=== PATIENT | male | born 1985 | race Two or more races ===

== ENCOUNTER 2023-05-03 17:47 | Observation (INO) | payer BC ==
[2023-05-03] MEDS ORDERED: SODIUM CHLORIDE 0.9% 1,000 ML IV STA (18:27)
--- NOTE | 2023-05-03 18:28 | ED ---
General Adult HPI - General Chief complaint: Abdominal Pain Stated complaint: abd pain Time Seen by Provider: 05/03/23 17:59 Source: patient, RN notes reviewed Mode of arrival: ambulatory Limitations: no limitations - History of Present Illness Initial comments: 37-year-old male presents to the emergency department for evaluation of epigastric abdominal pain since yesterday. He states that the pain has been constant and radiates to his back. He admits to nausea with vomiting. Denies recent fevers. He denies significant alcohol consumption. He does admit to having 1 beer 2 days ago. Denies history of pancreatitis. Past medical history significant for ADHD. Denies any prior abdominal surgeries. - Related Data Home Medications Medication Instructions Recorded Confirmed Famotidine [Pepcid] 20 mg PO DAILY PRN 05/03/23 05/03/23 Ibuprofen [Motrin Ib] 400 - 600 mg PO Q8H PRN 05/03/23 05/03/23 Methylphenidate HCl [Ritalin] 10 mg PO DAILY PRN 05/03/23 05/03/23 Naproxen Sodium [Aleve] 220 mg PO BID PRN 05/03/23 05/03/23 Simethicone [Gas-X] 125 mg PO DAILY PRN 05/03/23 05/03/23 Allergies Allergy/AdvReac Type Severity Reaction Status Date / Time Penicillins Allergy Unknown Verified 05/03/23 21:10 Review of Systems ROS Statement: Those systems with pertinent positive or pertinent negative responses have been documented in the HPI. ROS Other: All systems not noted in ROS Statement are negative. Past Medical History Past Medical History: No Reported History History of Any Multi-Drug Resistant Organisms: None Reported Past Surgical History: No Surgical Hx Reported Past Psychological History: No Psychological Hx Reported Smoking Status: Never smoker Past Alcohol Use History: Occasional Past Drug Use History: None Reported General Exam Limitations: no limitations General appearance: alert, in no apparent distress Head exam: Present: atraumatic, normocephalic, normal inspection Eye exam: Present: normal appearance, PERRL, EOMI. Absent: scleral icterus, conjunctival injection, periorbital swelling ENT exam: Present: mucous membranes dry Neck exam: Present: normal inspection. Absent: tenderness, meningismus, lymphadenopathy Respiratory exam: Present: normal lung sounds bilaterally. Absent: respiratory distress, wheezes, rales, rhonchi, stridor Cardiovascular Exam: Present: regular rate, normal rhythm, normal heart sounds. Absent: systolic murmur, diastolic murmur, rubs, gallop, clicks GI/Abdominal exam: Present: soft, tenderness, normal bowel sounds. Absent: distended Extremities exam: Present: normal inspection, full ROM, normal capillary refill. Absent: tenderness, pedal edema, joint swelling, calf tenderness Back exam: Present: normal inspection Neurological exam: Present: alert, oriented X3 Psychiatric exam: Present: normal affect, normal mood Course Vital Signs 05/03/23 05/03/23 05/03/23 17:51 18:10 18:30 Temperature 98.7 F Pulse Rate 110 H Pulse Rate [ Pulse Oximetery ] Respiratory 20 18 18 Rate Blood Pressure 126/86 132/91 132/91 Blood Pressure [Right Arm] O2 Sat by Pulse 99 98 99 Oximetry 05/03/23 05/04/23 19:00 01:14 Temperature 98.8 F Pulse Rate 78 Pulse Rate [ 106 H Pulse Oximetery ] Respiratory 17 20 Rate Blood Pressure 137/95 Blood Pressure 128/92 [Right Arm] O2 Sat by Pulse 95 98 Oximetry Medical Decision Making - Medical Decision Making Was pt. sent in by a medical professional or institution (, PA, [employer], urgent c are, hospital, or halfway...) When possible be specific @ -No Did you speak to anyone other than the patient for history (EMS, parent, family, police, friend...)? What history was obtained from this source @ -No Did you review nursing and triage notes (agree or disagree)? Why? @ -I reviewed and agree with nursing and triage notes Were old charts reviewed (outside hosp., previous admission, EMS record, old EKG, old radiological studies, urgent care reports/EKG's, halfway records)? Report findings @ -Charts from visit at urgent care in [place] reviewed including EKG which shows normal sinus rhythm rate 82, DE 142, QRS 88, QTQTc [id number]; laboratory studies including elevated lipase. Patient received 1 L normal saline, 0.5 mg of Dilaudid, Zofran, Benadryl at the urgent care facility. Patient was transferred to our facility as the patient currently has [place] citizenship and i nsurance in the [place]. Differential Diagnosis (chest pain, altered mental status, abdominal pain women, abdominal pain men, vaginal bleeding, weakness, fever, dyspnea, syncope, headache, dizziness, GI bleed, back pain, seizure, CVA, palpatations, mental health, musculoskeletal)? @ -Differential Abdominal Pain Men: Appendicitis, cholecystitis, diverticulosis, ischemic bowel, pancreatitis, hepatitis, UTI, gastroenteritis, AAA, incarcerated hernia, bowel obstruction, constipation, inflammatory bowel, hepatitis, peptic ulcer disease, splenic infarction, perforated viscus, testicular torsion, this is not meant to be an all-inclusive list EKG interpreted by me (3pts min.). @ -None X-rays interpreted by me (1pt min.). @ -None done CT interpreted by me (1pt min.). @ -CT abdomen pelvis shows U/S interpreted by me (1pt. min.). @ -None done What testing was considered but not performed or refused? (CT, X-rays, U/S, labs)? Why? @ -None What meds were considered but not given or refused? Why? @ -None Did you discuss the management of the patient with other professionals (professionals i.e. , PA, [employer], lab, RT, psych nurse, social media project manager, industrial designer, teacher, district fire management officer, heel caser)? Give summary @ -Management discussed with [facility], Dr. Zamora who was accepting of the admission for symptom control, surgery consult. Was smoking cessation discussed for >3mins.? @ -No Was critical care preformed (if so, how long)? @ -No Were there social determinants of health that impacted care today? How? (Homelessness, low income, unemployed, alcoholism, drug addiction, transportation, low edu. Level, literacy, decrease access to med. care, [facility], rehab)? @ -No Was there de-escalation of care discussed even if they declined (Discuss DNR or withdrawal of care, Hospice)? DNR status @ -No What co-morbidities impacted this encounter? (DM, HTN, Smoking, COPD, CAD, Can cer, CVA, ARF, Chemo, Hep., AIDS, mental health diagnosis, sleep apnea, morbid obesity)? @ -None Was patient admitted / discharged? Hospital course, mention meds given and route, prescriptions, significant lab abnormalities, going to OR and other pertinent info. @ -Admitted. Patient presented to the emergency department for evaluation of epigastric pain. Patient was sent in by urgent care in [place]. Symptoms have been going on since yesterday. He denies significant alcohol use. Records from [facility] reviewed and listed above. Laboratory studies repeated. Patient has leukocytosis of 18.9. Coagulation studies within normal limits. CMP shows sodium 139 potassium 4.1, lactic acid 1.1 amylase 1386, lipase 6435; UA shows 2+ ketones, trace protein, increased specific gravity. CT abdomen pelvis obtained. Impression mild fluid in the right paracolic gutter and within the pelvis; moderate fatty infiltration of the liver; cystlike area in the left hemipelvis. Will be admitted for acute pancreatitis, fluid rehydration, symptom control and surgery consult. Case was discussed with who is accepting of the admission. Understanding agreeable with plan. Patient stable at time of admission. Case discussed with my attending, Dr. Smith Undiagnosed new problem with uncertain prognosis? @ -No Drug Therapy requiring intensive monitoring for toxicity (Heparin, Nitro, Insulin, Cardizem)? @ -No Were any procedures done? @ -No Diagnosis/symptom? @ -Pancreatitis Acute, or Chronic, or Acute on Chronic? @ -Acute Uncomplicated (without systemic symptoms) or Complicated (systemic symptoms)? @ -Uncomplicated Side effects of treatment? @ -No Exacerbation, Progression, or Severe Exacerbation? @ -No Poses a threat to life or bodily function? How? (Chest pain, [place], DE, pneumonia, PE, COPD, DKA, ARF, appy, cholecystitis, CVA, Diverticulitis, Homicidal, Suicidal, threat to staff... and all critical care pts) @ -No - Lab Data Result diagrams: 05/04/23 05:33 05/04/23 05:33 Lab Results 05/03/23 05/03/23 05/03/23 Range/Units 18:38 18:38 18:38 WBC 18.9 H (3.8-10.6) k/uL RBC 4.92 (4.30-5.90) m/uL Hgb 15.1 (13.0-17.5) gm/dL Hct 44.6 (39.0-53.0) % MCV 90.8 (80.0-100.0) fL MCH 30.7 (25.0-35.0) pg MCHC 33.9 (31.0-37.0) g/dL RDW 13.3 (11.5-15.5) % Plt Count 179 (150-450) k/uL MPV 8.4 Neutrophils % 87 % Lymphocytes % 8 % Monocytes % 3 % Eosinophils % 1 % Basophils % 0 % Neutrophils # 16.5 H (1.3-7.7) k/uL Lymphocytes # 1.5 (1.0-4.8) k/uL Monocytes # 0.6 (0-1.0) k/uL Eosinophils # 0.2 (0-0.7) k/uL Basophils # 0.0 (0-0.2) k/uL Manual Slide Review Performed RBC Morphology Normal PT 11.3 (10.0-12.5) sec INR 1.0 (<1.2) APTT 25.1 (22.0-30.0) sec Sodium 139 (137-145) mmol/L Potassium 4.1 (3.5-5.1) mmol/L Chloride 108 H (98-107) mmol/L Carbon Dioxide 23 (22-30) mmol/L Anion Gap 8 mmol/L BUN 13 (9-20) mg/dL Creatinine 0.84 (0.66-1.25) mg/dL Est GFR (CKD-EPI)AfAm >90 (>60 ml/min/1.73 sqM) Est GFR (CKD-EPI)NonAf >90 (>60 ml/min/1.73 sqM) Glucose 118 H (74-99) mg/dL Plasma Lactic Acid Salazar (0.7-2.0) mmol/L Calcium 8.2 L (8.4-10.2) mg/dL Total Bilirubin 0.7 (0.2-1.3) mg/dL AST 24 (17-59) U/L ALT 47 (4-49) U/L Alkaline Phosphatase 93 (38-126) U/L Total Protein 6.4 (6.3-8.2) g/dL Albumin 3.7 (3.5-5.0) g/dL Amylase 1386 H* (30-110) U/L Lipase 6435 H (23-300) U/L 05/03/23 Range/Units 18:38 WBC (3.8-10.6) k/uL RBC (4.30-5.90) m/uL Hgb (13.0-17.5) gm/dL Hct (39.0-53.0) % MCV (80.0-100.0) fL MCH (25.0-35.0) pg MCHC (31.0-37.0) g/dL RDW (11.5-15.5) % Plt Count (150-450) k/uL MPV Neutrophils % % Lymphocytes % % Monocytes % % Eosinophils % % Basophils % % Neutrophils # (1.3-7.7) k/uL Lymphocytes # (1.0-4.8) k/uL Monocytes # (0-1.0) k/uL Eosinophils # (0-0.7) k/uL Basophils # (0-0.2) k/uL Manual Slide Review RBC Morphology PT (10.0-12.5) sec INR (<1.2) APTT (22.0-30.0) sec Sodium (137-145) mmol/L Potassium (3.5-5.1) mmol/L Chloride (98-107) mmol/L Carbon Dioxide (22-30) mmol/L Anion Gap mmol/L BUN (9-20) mg/dL Creatinine (0.66-1.25) mg/dL Est GFR (CKD-EPI)AfAm (>60 ml/min/1.73 sqM) Est GFR (CKD-EPI)NonAf (>60 ml/min/1.73 sqM) Glucose (74-99) mg/dL Plasma Lactic Acid Salazar 1.1 (0.7-2.0) mmol/L Calcium (8.4-10.2) mg/dL Total Bilirubin (0.2-1.3) mg/dL AST (17-59) U/L ALT (4-49) U/L Alkaline Phosphatase (38-126) U/L Total Protein (6.3-8.2) g/dL Albumin (3.5-5.0) g/dL Amylase (30-110) U/L Lipase (23-300) U/L Disposition Clinical Impression: Acute pancreatitis Disposition: ADMITTED IP TO THIS [facility] Condition: Stable Is patient prescribed a controlled substance at d/c from ED?: No
[2023-05-03] MEDS ORDERED: HYDROmorphone 0.5 MG/0.5 ML SYRINGE IVP STA ×2 (18:43→21:00)
[2023-05-03 18:57] LABS: Partial Thromboplastin Time 25.1 sec (22.0-30.0); Prothrombin Time 11.3 sec (10.0-12.5)
[2023-05-03 19:01] LABS: ALT 47 U/L (4-49); AST 24 U/L (17-59); African American GFR (CKD) >90 (>60 ml/min/1.73 sqM); Albumin 3.7 g/dL (3.5-5.0); Alkaline Phosphatase 93 U/L (38-126); Anion Gap 8 mmol/L; Blood Urea Nitrogen 13 mg/dL (9-20); Calcium 8.2 mg/dL (8.4-10.2); Carbon Dioxide 23 mmol/L (22-30); Chloride 108 mmol/L (98-107); Glucose 118 mg/dL (74-99); Non-African American GFR(CKD) >90 (>60 ml/min/1.73 sqM); Potassium 4.1 mmol/L (3.5-5.1); Sodium 139 mmol/L (137-145); Total Bilirubin 0.7 mg/dL (0.2-1.3); Total Protein 6.4 g/dL (6.3-8.2)
[2023-05-03 19:03] LABS: Basophils % (A) 0 %; Eosinophils # (A) 0.2 k/uL (0-0.7); Eosinophils % (A) 1 %; HCT 44.6 % (39.0-53.0); HGB 15.1 gm/dL (13.0-17.5); Lymphocytes # (A) 1.5 k/uL (1.0-4.8); Lymphocytes % (A) 8 %; MCH 30.7 pg (25.0-35.0); MCHC 33.9 g/dL (31.0-37.0); MCV 90.8 fL (80.0-100.0); Mean Platelet Volume 8.4; Monocytes # (A) 0.6 k/uL (0-1.0); Monocytes % (A) 3 %; Neutrophils # (A) 16.5 k/uL (1.3-7.7); Neutrophils % (A) 87 %; Platelet Count 179 k/uL (150-450); RBC 4.92 m/uL (4.30-5.90); RDW 13.3 % (11.5-15.5); WBC 18.9 k/uL (3.8-10.6)
[2023-05-03 19:14] LABS: RBC Morphology Normal
[2023-05-03 19:16] LABS: Amylase 1386 U/L (30-110)
[2023-05-03 19:30] LABS: Lipase 6435 U/L (23-300)
[2023-05-03] MEDS ORDERED: METOCLOPRAMIDE 5 MG/ML 2 ML VIAL IVP PRN (21:37)
--- NOTE | 2023-05-03 21:41 | CT ---
EXAMINATION TYPE: CT abdomen pelvis w con DATE OF EXAM: 05/03/2023 COMPARISON: INDICATION: midabdominal pain DLP: 867.3 mGycm, Automated exposure control for dose reduction was used. CONTRAST: 100ml mL of Isovue 300. Study performed without Oral Contrast TECHNIQUE: Axial images were obtained from above the diaphragm to the pubic rami in the axial plane a t 5 mm thick sections. Reconstructed images are reviewed on the computer in the coronal plane. FINDINGS: Limited CT sections are obtained the lung bases. The lung bases are clear. CT ABDOMEN: Some minimal fluid is within the right paracolic gutter and in the pelvis. Liver: There is moderate fatty impression liver. Spleen: Normal Pancreas: Normal Adrenal glands: The adrenal glands are normal. Gallbladder: Normal Kidneys: No masses are evident. No hydronephrosis is present. No cysts are present. Delayed images were obtained through the kidneys, which remain unremarkable. Aorta: Normal Inferior vena cava: Normal. CT PELVIS: Loops of bowel within the abdomen and pelvis are normal. This study is without neural contrast li miting bowel evaluation. Appendix: Normal as visualized. Urinary bladder: Urinary bladder appears normal. There is a cystlike area to the left of the urinary bladder could be a bladder diverticulum. This measures 2.4 cm in diameter. Genitourinary structures: Prostate contains calcification. Osseous structures: No suspicious lytic or sclerotic lesions. IMPRESSION: 1. Mild fluid within right paracolic gutter and within the pelvis. Free fluid within the abdomen is abnormal in a male. 2. Moderate fatty infiltration of liver. 3. Cystlike area within the left hemipelvis. Differential could include a urinary bladder diverticulu m and mesenteric cyst.
[2023-05-03] MEDS ORDERED: HYDROmorphone 1 MG/ML 1 ML SYRINGE IVP PRN (22:09)
[2023-05-03] MEDS ORDERED: IBUPROFEN 400 MG TAB PO PRN (22:09)
[2023-05-03] MEDS ORDERED: NALOXONE 0.4 MG/ML 1 ML VIAL IV PRN (22:09)
[2023-05-04] MEDS: SODIUM CHLORIDE 0.9% 1,000 ML IV SCH ×2 (00:59→10:00)
[2023-05-04 01:01] LABS: Appearance,Urine Clear (Clear); Bilirubin,Urine Negative (Negative); Blood,Urine Trace (Negative); Color,Urine Light Yellow; Glucose,Urine (UA) Negative (Negative); Ketones,Urine 2+ (Negative); Leukocyte Esterase,Urine Negative (Negative); Mucus,Urine Occasional /hpf; Nitrite,Urine Negative (Negative); Protein,Urine Trace (Negative); RBC,Urine 5 /hpf (0-5); Specific Gravity,Urine >1.050 (1.001-1.035); Squamous Epithelial Cell,Urine 1 /hpf (0-4); Urobilinogen,Urine <2.0 mg/dL (<2.0); WBC,Urine 2 /hpf (0-5)
[2023-05-04] MEDS: KETOROLAC 15 MG/ML 1 ML VIAL IVP PRN ×2 (01:04→14:58)
[2023-05-04] MEDS ORDERED: ONDANSETRON 4 MG/2 ML VIAL IVP PRN (04:28)
--- NOTE | 2023-05-04 04:30 | P.HPIM ---
History of Present Illness H&P Date: 05/04/23 Patient is a 37-year-old male with a PMH of ADD who presents to the emergency room with complaints of abdominal pain with nausea and vomiting. Patient reports his symptoms started on Thursday morning shortly after waking up with epigastric abdominal discomfort, 9 out of 10 at maximal intensity, nonradiating, with associated nausea with numerous episodes of vomiting. Denies any blood in his vomitus or coffee-ground. Reports the pain is improved to a 2 out of 10 at the time of interview. He denies any history of cholecystitis or cholelithiasis. Denies recent trauma or new medications. Denies any alcohol use. Denies any prior history of such symptoms. Reports he has been unable to keep any solids or liquids down for the past 2 days. Denies fever, chills, diarrhea, chest discomfort, shortness of breath. CT abdomen and pelvis revealed mild fluid within the right paracolic gutter as well as free fluid within the abdomen with moderate fatty infiltration of the liver. Laboratory evaluation revealed leukocytosis of 18.9, lipase 6435, amylase 1386, UA positive for ketones, and lactic acid 1.1. ED documentation reviewed and case discussed with ED provider. Review of systems: Pertinent positives and negatives as discussed in HPI, a complete review of systems was performed and all other systems are negative. Physical examination: Vital signs reviewed General: non toxic, no distress, appears at stated age, normal weight Derm: no unusual rashes/lesions, warm Head: atraumatic, normocephalic, symmetric Eyes: EOMI, no lid lag, anicteric sclera, pupils equal round reactive to light ENT: Nose and ears atraumatic Neck: No cervical lymphadenopathy, trachea midline, supple Mouth: no lip lesion, mucus membranes moist Cardiovascular: S1S2 reg, no murmur, positive dorsalis pedis pulse bilateral, no edema Lungs: CTA bilateral, no rhonchi, no rales, no accessory muscle use Abdominal: soft, mild epigastric tenderness, no guarding Ext: muscle strength 5 out of 5 in all 4 extremities grossly, no gross muscle atrophy, no contractures, Neuro: CN II-XI grossly intact, no gross focal neuro deficits Psych: Alert, oriented, appropriate affect Assessment: Acute pancreatitis, unclear etiology Leukocytosis, likely due to acute stressor without signs of active infection at this time Imaging: CT abdomen and pelvis revealed mild fluid within the right paracolic gutter as well as free fluid within the abdomen with moderate fatty infiltration of the liver. Data Review: Laboratory evaluation revealed leukocytosis of 18.9, lipase 6435, amylase 1386, UA positive for ketones, and lactic acid 1.1. Plan: N.p.o. for now IV fluids with normal saline 130 cc/h Consult GI Pain control Antiemetics Monitor CBC DVT prophylaxis: Lovenox subcu The patient is admitted with an anticipated less than 2 midnight stay for evaluation of acute pancreatitis CODE STATUS: Full Code Discussed with: Patient Anticipated discharge place: Home Past Medical History Past Medical History: No Reported History History of Any Multi-Drug Resistant Organisms: None Reported Past Surgical History: No Surgical Hx Reported Past Psychological History: No Psychological Hx Reported Smoking Status: Never smoker Past Alcohol Use History: Occasional Past Drug Use History: None Reported Medications and Allergies Home Medications Medication Instructions Recorded Confirmed Type Famotidine [Pepcid] 20 mg PO DAILY PRN 05/03/23 05/03/23 History Ibuprofen [Motrin Ib] 400 - 600 mg PO Q8H PRN 05/03/23 05/03/23 History Methylphenidate HCl [Ritalin] 10 mg PO DAILY PRN 05/03/23 05/03/23 History Naproxen Sodium [Aleve] 220 mg PO BID PRN 05/03/23 05/03/23 History Simethicone [Gas-X] 125 mg PO DAILY PRN 05/03/23 05/03/23 History Allergies Allergy/AdvReac Type Severity Reaction Status Date / Time Penicillins Allergy Unknown Verified 05/03/23 21:10 Physical Exam Vitals: Vital Signs Temp Pulse Pulse Resp BP BP Pulse Ox 05/04/23 01:14 98.8 F 106 H 20 128/92 98 05/03/23 19:00 78 17 137/95 95 05/03/23 18:30 18 132/91 99 05/03/23 18:10 18 132/91 98 05/03/23 17:51 98.7 F 110 H 20 126/86 99 Intake and Output 05/03/23 05/03/23 05/04/23 14:59 22:59 06:59 Other: Weight 72.575 kg 72.575 kg Results CBC & Chem 7: 05/03/23 18:38 05/03/23 18:38 Labs: Abnormal Lab Results - Last 24 Hours (Table) 05/03/23 05/03/23 05/04/23 Range/Units 18:38 18:38 00:47 WBC 18.9 H (3.8-10.6) k/uL Neutrophils # 16.5 H (1.3-7.7) k/uL Chloride 108 H (98-107) mmol/L Glucose 118 H (74-99) mg/dL Calcium 8.2 L (8.4-10.2) mg/dL Amylase 1386 H* (30-110) U/L Lipase 6435 H (23-300) U/L Ur Specific [place] >1.050 H (1.001-1.035) Urine Protein Trace H (Negative) Urine Ketones 2+ H (Negative) Urine Blood Trace H (Negative) Urine Mucus Occasional H (None) /hpf
[2023-05-04 06:14] LABS: HCT 42.7 % (39.0-53.0); HGB 14.3 gm/dL (13.0-17.5); MCH 30.6 pg (25.0-35.0); MCHC 33.6 g/dL (31.0-37.0); Mean Platelet Volume 8.4; Platelet Count 163 k/uL (150-450); RBC 4.69 m/uL (4.30-5.90); RDW 13.5 % (11.5-15.5); WBC 19.4 k/uL (3.8-10.6)
[2023-05-04 06:25] LABS: ALT 40 U/L (4-49); AST 22 U/L (17-59); African American GFR (CKD) >90 (>60 ml/min/1.73 sqM); Albumin 3.3 g/dL (3.5-5.0); Albumin/Globulin Ratio 1.3; Alkaline Phosphatase 96 U/L (38-126); Anion Gap 8 mmol/L; Blood Urea Nitrogen 12 mg/dL (9-20); Calcium 8.1 mg/dL (8.4-10.2); Carbon Dioxide 23 mmol/L (22-30); Chloride 108 mmol/L (98-107); Globulin 2.6 g/dL; Glucose 92 mg/dL (74-99); Non-African American GFR(CKD) >90 (>60 ml/min/1.73 sqM); Potassium 3.7 mmol/L (3.5-5.1); Sodium 139 mmol/L (137-145); Total Bilirubin 0.8 mg/dL (0.2-1.3); Total Protein 5.9 g/dL (6.3-8.2)
[2023-05-04 06:33] LABS: Lipase 2992 U/L (23-300)
[2023-05-04] MEDS: ENOXAPARIN 40 MG/0.4 ML SYRINGE SQ SCH (08:49)
[2023-05-04] MEDS: HYDROmorphone 0.5 MG/0.5 ML SYRINGE IVP PRN ×5 (08:49→23:49)
[2023-05-04] MEDS: LACTATED RINGERS 1,000 ML IV SCH ×3 (10:00→23:22)
--- NOTE | 2023-05-04 10:36 | P.CONS ---
History of Present Illness - Reason for Consult Consult date: 05/04/23 Pancreatitis Requesting physician: Geovanna Zamora - Chief Complaint Abdominal pain, nausea and vomiting - History of Present Illness This is a pleasant 37-year-old white male who came to the emergency department for abdominal pain, nausea and vomiting. Patient states Thursday morning he was in [place] visiting his dad when he started having gas-like pain. The pain progressed and he started having nausea and vomiting for about 20 hours. He went to the hospital over in [place] where they gave him some IV fluids and antiemetics. He was then discharged and told to follow-up over here in the [facility] He was noted to have significantly elevated amylase and lipase without any evidence of transaminitis. He denies any history of previous pancreatitis, no family history of pancreatitis, denies any regular alcohol use, and no new medications. States he had some chills but no fever. No diarrhea associated with the nausea and vomiting. He had a CT of the abdomen and pelvis with IV contrast with findings of fluid within the right paracolic gutter and within the pelvis. Free fluid within the abdomen is abnormal in a male. Moderate fatty infiltration of liver. Cystlike area within the left hemipelvis make it to. Differential could include urinary bladder diverticulum and mesenteric cyst. Admitting labs WBC 18.9 hemoglobin 15 hematocrit 44 platelet count 179,000 INR 1.0 sodium 139 potassium 4.1 BUN 13 creatinine 0.8 total bilirubin 0.7 AST 24 ALT 47 alkaline phosphatase 93 amylase 1386 lipase 6435. Today's repeat of lipase 2992, total bilirubin 0.8 AST 22 ALT 40 alkaline phosphatase 96. He states abdominal pain is slightly better nausea and vomiting has subsided. He has not had a bowel movement in several days. Denies any fevers or chills right now. Review of Systems REVIEW OF SYSTEMS: CARDIOPULMONARY: No chest pain or shortness of breath. Gastrointestinal: Patient reports most of pain is in the epigastric region. He reported 20 hours of nausea and vomiting however that has subsided at this time. No hematemesis, coffee-ground emesis. No rectal bleeding, or melena. GENITOURINARY: No dysuria or hematuria. MUSCULOSKELETAL: Reports normal range of motion. SKIN: No rashes. No jaundice. ENDOCRINE: No chills, fevers. No excessive weight gain or loss. No polydipsia or polyuria. PSYCHIATRIC: Unremarkable. NEUROLOGY: No change in mental status. Denies dizziness, headache. ENT: Vision unremarkable. CONSTITUTIONAL: No recent weight loss. No fever, night sweats. Chills. Past Medical History Past Medical History: No Reported History History of Any Multi-Drug Resistant Organisms: None Reported Past Surgical History: No Surgical Hx Reported Past Psychological History: No Psychological Hx Reported Smoking Status: Never smoker Past Alcohol Use History: Occasional Past Drug Use History: None Reported Medications and Allergies Home Medications Medication Instructions Recorded Confirmed Type Famotidine [Pepcid] 20 mg PO DAILY PRN 05/03/23 05/03/23 History Ibuprofen [Motrin Ib] 400 - 600 mg PO Q8H PRN 05/03/23 05/03/23 History Methylphenidate HCl [Ritalin] 10 mg PO DAILY PRN 05/03/23 05/03/23 History Naproxen Sodium [Aleve] 220 mg PO BID PRN 05/03/23 05/03/23 History Simethicone [Gas-X] 125 mg PO DAILY PRN 05/03/23 05/03/23 History Allergies Allergy/AdvReac Type Severity Reaction Status Date / Time Penicillins Allergy Unknown Verified 05/03/23 21:10 Physical Exam Vitals: Vital Signs Temp Pulse Pulse Resp BP BP Pulse Ox 05/04/23 01:14 98.8 F 106 H 20 128/92 98 05/03/23 19:00 78 17 137/95 95 05/03/23 18:30 18 132/91 99 05/03/23 18:10 18 132/91 98 05/03/23 17:51 98.7 F 110 H 20 126/86 99 Intake and Output 05/03/23 05/04/23 05/04/23 22:59 06:59 14:59 Intake Total 1520 Balance 1520 Intake: Intake, IV Titration 1520 Amount Sodium Chloride 0.9% 1, 520 000 ml @ 130 mls/hr IV . Q7H42M JEREMIAH Rx#:[id number] Sodium Chloride 0.9% 1, 1000 000 ml @ 999 mls/hr IV . Q1H1M STA Rx#:[id number] Other: # Voids 1 Weight 72.575 kg 72.575 kg General appearance: The patient is alert, oriented, appears in no acute distress. HET: Head is normocephalic and atraumatic. Conjunctiva pink. Sclera anicteric. Neck: Supple without lymphadenopathy. Trachea midline. Heart: Regular. Lungs: Equal expansion, normal respiratory effort. Abdomen: Soft, epigastric tenderness, nondistended with bowel sounds. No g uarding or rigidity. Skin: No rashes. No jaundice. Extremities: Normal skin color and turgor. No pedal edema. Neurological: No focal deficits. Alert and oriented x3. Results CBC & Chem 7: 05/04/23 05:33 05/04/23 05:33 Labs: Abnormal Lab Results - Last 24 Hours (Table) 05/03/23 05/03/23 05/04/23 Range/Units 18:38 18:38 00:47 WBC 18.9 H (3.8-10.6) k/uL Neutrophils # 16.5 H (1.3-7.7) k/uL Chloride 108 H (98-107) mmol/L Glucose 118 H (74-99) mg/dL Calcium 8.2 L (8.4-10.2) mg/dL Total Protein (6.3-8.2) g/dL Albumin (3.5-5.0) g/dL Amylase 1386 H* (30-110) U/L Lipase 6435 H (23-300) U/L Ur Specific Gary >1.050 H (1.001-1.035) Urine Protein Trace H (Negative) Urine Ketones 2+ H (Negative) Urine Blood Trace H (Negative) Urine Mucus Occasional H (None) /hpf 05/04/23 05/04/23 Range/Units 05:33 05:33 WBC 19.4 H (3.8-10.6) k/uL Neutrophils # (1.3-7.7) k/uL Chloride 108 H (98-107) mmol/L Glucose (74-99) mg/dL Calcium 8.1 L (8.4-10.2) mg/dL Total Protein 5.9 L (6.3-8.2) g/dL Albumin 3.3 L (3.5-5.0) g/dL Amylase (30-110) U/L Lipase 2992 H (23-300) U/L Ur Specific Gary (1.001-1.035) Urine Protein (Negative) Urine Ketones (Negative) Urine Blood (Negative) Urine Mucus (None) /hpf Comments: CT of the abdomen and pelvis with IV contrast with findings of fluid within the right paracolic gutter and within the pelvis. Free fluid within the abdomen is abnormal in a male. Moderate fatty infiltration of liver. Cystlike area within the left hemipelvis make it to. Differential could include urinary bladder diverticulum and mesenteric cyst. CT scan - abdomen: report reviewed Assessment and Plan (1) Acute pancreatitis Narrative/Plan: 37-year-old male presenting to the hospital with abdominal pain nausea and vomiting with acute pancreatitis. Unclear etiology at this time. He denies any alcohol use, no new medications, no concerns with gallbladder and LFTs are all normal. Denies any previous history of known fatty liver disease. Will order triglycerides, JOSUE and IgG4. Continue with aggressive IV hydration, pain medication like chips and popsicles. Will obtain gallbladder ultrasound Current Visit: Yes Status: Acute Code(s): K85.90 - ACUTE PANCREATITIS WITHOUT NECROSIS OR INFECTION, UNSP SNOMED Code(s): 705419217 Plan: 1. Continue symptomatic and supportive care 2. Continue aggressive IV hydration 3. Pain medication and antiemetics as needed 4. Triglycerides, IgG and JOSUE ordered 5. Repeat lipase tomorrow 6. Gallbladder ultrasound ordered 7. Further recommendations based on patient's clinical course Thank you for this consultation, we will continue to follow Dr. Mitesh Doty I agree with the dictator's note, documented as a scribe by Clair Person.
--- NOTE | 2023-05-04 11:44 | US ---
EXAMINATION TYPE: US gallbladder DATE OF EXAM: 05/04/2023 COMPARISON: NONE CLINICAL INDICATION: Male, 37 years old with history of pancreatitis; Epigastric pain and vomiting x 1 day; Patient denies any other signs/symptoms/relevant history TECHNIQUE: Multiple sonographic images of the right upper quadrant are obtained. FINDINGS: EXAM MEASUREMENTS: Liver Length: 15.1 cm Gallbladder Wall: 0.2 cm CBD: 0.3 cm Right Kidney: 11.8 x 6.3 x 4.8 cm TRANSFER CONTROLLER NOTES:Difficult exam due to overlying bowel gas Pancreas: Tail obscured by overlying bowel gas Liver: Increased attenuation, decreased visualization of vessels suggestive of fatty infiltrate Gallbladder: wnl Evidence for sonographic Watson's sign: No CBD: Limited vis Right Kidney: wnl IMPRESSION: Hepatic steatosis.
--- NOTE | 2023-05-04 14:32 | P.PN ---
Subjective Progress Note Date: 05/04/23 Patient is a 37-year-old male with ADD who presented to the emergency department with complaints of abdominal pain and nausea. In the ER he underwent extensive evaluation. On arrival he was tachycardic with a pulse of 110. Laboratory analysis was remarkable for white blood cell count of 18.9, glucose 118, calcium 8.2, amylase 1386, and lipase of 6435. CT abdomen and pelvis showed moderate f atty infiltration of the liver, mild fluid within the right pericolic gutter and a cystlike area in the left hemipelvis. Patient was diagnosed with pancreatitis and was started on IV fluids, antiemetics, and pain control. Arrangements were made for admission. Patient seen and examined at bedside. No more nausea, pain is some what better than this morning. He denies drinking alcohol, hx of gallstones. Vital signs reviewed General: Ill appearing, no distress, appears at stated age Cardiovascular: S1S2 reg, no murmur Lungs: CTA bilateral, no rhonchi, no rales, no accessory muscle use Abdominal: Soft, + tender to palpation RLQ and LLQ, no guarding Ext: No gross muscle atrophy, no edema b/l lower extremities, no contractures Neuro: CN II-XI grossly intact, no focal neuro deficits Psych: Alert, oriented, appropriate affect Assessment/Plan: Acute pancreatitis -Transition normal saline to lactated Ringer's at 130 cc/h -Pain control with Toradol 15 mg IV every 6 hours for moderate pain and Dilaudid 0.5 to 1 mg as needed for more severe pain. -Continue Zofran 4 mg IV every 6 hours as needed for nausea and vomiting -N.p.o. with ice chips -Repeat CMP in a.m. Leukocytosis, suspect reactive -Suspect reactive to pancreatitis. Repeat CBC in a.m. ADHD -Ritalin on hold while he is in the hospital. Imaging: See above Data Review: Labs reviewed from today include CBC, CMP, and lipase which are remarkable for white blood cell count 19.4, calcium 8.1, and lipase of 2992. DVT prophylaxis: Lovenox Anticipated discharge date: Pending clinical course Anticipated discharge place: Pending clinical course This dictation was prepared using [employer] voice recognition software. Th ough every attempt is made to correct errors during dictation some may still exist. Objective - Vital Signs Vital signs: Vital Signs Temp 98.8 F 05/04/23 01:14 Pulse 106 H 05/04/23 01:14 Resp 20 05/04/23 01:14 BP 128/92 05/04/23 01:14 Pulse Ox 98 05/04/23 01:14 FiO2 Intake & Output 05/03/23 05/04/23 05/04/23 18:59 06:59 18:59 Intake Total 1520 Balance 1520 Weight 72.575 kg 72.575 kg Intake: Intake, IV Titration 1520 Amount Sodium Chloride 0.9% 1, 520 000 ml @ 130 mls/hr IV . Q7H42M JEREMIAH Rx#:[id number] Sodium Chloride 0.9% 1, 1000 000 ml @ 999 mls/hr IV . Q1H1M STA Rx#:[id number] Other: # Voids 1 - Labs CBC & Chem 7: 05/04/23 05:33 05/04/23 05:33 Labs: Abnormal Lab Results - Last 24 Hours (Table) 05/03/23 05/03/23 05/04/23 Range/Units 18:38 18:38 00:47 WBC 18.9 H (3.8-10.6) k/uL Neutrophils # 16.5 H (1.3-7.7) k/uL Chloride 108 H (98-107) mmol/L Glucose 118 H (74-99) mg/dL Calcium 8.2 L (8.4-10.2) mg/dL Total Protein (6.3-8.2) g/dL Albumin (3.5-5.0) g/dL Amylase 1386 H* (30-110) U/L Lipase 6435 H (23-300) U/L Ur Specific Bradner >1.050 H (1.001-1.035) Urine Protein Trace H (Negative) Urine Ketones 2+ H (Negative) Urine Blood Trace H (Negative) Urine Mucus Occasional H (None) /hpf 05/04/23 05/04/23 Range/Units 05:33 05:33 WBC 19.4 H (3.8-10.6) k/uL Neutrophils # (1.3-7.7) k/uL Chloride 108 H (98-107) mmol/L Glucose (74-99) mg/dL Calcium 8.1 L (8.4-10.2) mg/dL Total Protein 5.9 L (6.3-8.2) g/dL Albumin 3.3 L (3.5-5.0) g/dL Amylase (30-110) U/L Lipase 2992 H (23-300) U/L Ur Specific Bradner (1.001-1.035) Urine Protein (Negative) Urine Ketones (Negative) Urine Blood (Negative) Urine Mucus (None) /hpf
[2023-05-05] MEDS: HYDROmorphone 0.5 MG/0.5 ML SYRINGE IVP PRN ×4 (03:47→20:42)
[2023-05-05] MEDS: LACTATED RINGERS 1,000 ML IV SCH ×3 (05:52→20:42)
[2023-05-05] MEDS: ENOXAPARIN 40 MG/0.4 ML SYRINGE SQ SCH (07:50)
[2023-05-05] MEDS: KETOROLAC 15 MG/ML 1 ML VIAL IVP PRN ×3 (07:50→23:26)
[2023-05-05] MEDS: PANTOPRAZOLE 40 MG/10 ML VIAL IVP SCH ×2 (08:41→20:42)
[2023-05-05] MEDS: ACETAMINOPHEN TAB 325 MG TAB PO PRN ×2 (11:32→23:01)
--- NOTE | 2023-05-05 12:41 | P.PN ---
Subjective Progress Note Date: 05/05/23 Principal diagnosis: Acute pancreatitis This is a pleasant 37-year-old white male who came to the emergency department for abdominal pain, nausea and vomiting. Patient states Thursday morning he was in [place] visiting his dad when he started having gas-like pain. The pain prog ressed and he started having nausea and vomiting for about 20 hours. He went to the hospital over in [place] where they gave him some IV fluids and antiemetics. He was then discharged and told to follow-up over here in the [facility]. He was noted to have significantly elevated amylase and lipase without any evidence of transaminitis. He denies any history of previous pancreatitis, no family histor y of pancreatitis, denies any regular alcohol use, and no new medications. States he had some chills but no fever. No diarrhea associated with the nausea and vomiting. He had a CT of the abdomen and pelvis with IV contrast with findings of fluid within the right paracolic gutter and within the pelvis. Free fluid within the abdomen is abnormal in a male. Moderate fatty infiltration of liver. Cystlike area within the left hemipelvis make it to. Differential could include urinary bladder diverticulum and mesenteric cyst. Admitting labs WBC 18.9 hemoglobin 15 hematocrit 44 platelet count 179,000 INR 1.0 sodium 139 potassium 4.1 BUN 13 creatinine 0.8 total bilirubin 0.7 AST 24 ALT 47 alkaline phosphatase 93 amylase 1386 lipase 6435. Today's repeat of lipase 2992, total bilirubin 0.8 AST 22 ALT 40 alkaline phosphatase 96. He states abdominal pain is slightly better nausea and vomiting has subsided. He has not had a bowel movement in several days. Denies any fevers or chills right now. 05/05/2023 Patient seen and examined today as a follow-up. He is sitting up in bed eating a popsicle. Patient looks much better. States his pain is significantly improved and now just radiating in his back. No nausea or vomiting. He is afebrile. Repeat lipase today 203 down from 2992. Triglycerides are 54.80 Objective - Vital Signs Vital signs: Vital Signs Temp 98.0 F 05/05/23 07:00 Pulse 103 H 05/05/23 07:00 Resp 16 05/05/23 07:00 BP 129/83 05/05/23 07:00 Pulse Ox 96 05/05/23 07:00 FiO2 Intake & Output 05/04/23 05/05/23 05/05/23 18:59 06:59 18:59 Other: # Voids 1 - Exam General appearance: The patient is alert, oriented, appears in no acute distress. HET: Head is normocephalic and atraumatic. Conjunctiva pink. Sclera anicteric. Neck: Supple without lymphadenopathy. Abdomen: Soft, epigastric tenderness, nondistended with bowel sounds. No guarding or rigidity. Extremities: Normal skin color and turgor. No pedal edema Skin: No rashes, no jaundice Neurological: No focal deficits. Alert and oriented. - Labs CBC & Chem 7: 05/04/23 05:33 05/04/23 05:33 Labs: Abnormal Lab Results - Last 24 Hours (Table) 05/05/23 Range/Units 05:38 Lipase 203 H (14-60) U/L Assessment and Plan (1) Acute pancreatitis Narrative/Plan: 37-year-old male presenting to the hospital with abdominal pain nausea and vomiting with acute pancreatitis. Unclear etiology at this time. He denies any alcohol use, no new medications, no concerns with gallbladder and LFTs are all normal. Denies any previous history of known fatty liver disease. Will order triglycerides, JOSUE and IgG4. Continue with aggressive IV hydration, pain medication like chips and popsicles. 05/05/2023 gallbladder ultrasound obtained no significant findings other than hepatic steatosis. CBD not dilated, pancreas tail is obscured by overlying bowel gas. Again unclear etiology of acute pancreatitis however patient's symptoms are improving. Recommendation is outpatient follow-up with gastroenterology in [place] where patient resides. No further workup indicated at this time. Current Visit: Yes Status: Acute Code(s): K85.90 - ACUTE PANCREATITIS WITHOUT NECROSIS OR INFECTION, UNSP SNOMED Code(s): 418063429 Plan: 1. Continue symptomatic and supportive care 2. Patient may have clear liquid diet, then advance as tolerated 3. Pain medication and antiemetics as needed 4. Triglycerides, IgG and JOSUE ordered 5. Gallbladder ultrasound ordered and reviewed 6. No further workup indicated at this time 7. Discussed with patient importance of following up with importer or exporter as an outpatient in [place] where he resides Thank you for this consultation, we will continue to follow. Anticipate discharge in the next [address] Mitesh Doty I agree with the dictator's note, documented as a scribe by Clair Person.
--- NOTE | 2023-05-05 14:05 | P.PN ---
Subjective Progress Note Date: 05/05/23 (delayed charting seen at 0750) Patient is a 37-year-old male with ADD who presented to the emergency department with complaints of abdominal pain and nausea. In the ER he underwent extensive evaluation. On arrival he was tachycardic with a pulse of 110. Laboratory analysis was remarkable for white blood cell count of 18.9, glucose 118, calcium 8.2, amylase 1386, and lipase of 6435. CT abdomen and pelvis showed moderate fatty infiltration of the liver, mild fluid within the right pericolic gutter and a cystlike area in the left hemipelvis. Patient was diagnosed with pancreatitis and was started on IV fluids, antiemetics, and pain control. Arrangements were made for admission. He was seen by GI an had liver US completed which showed fatty liver. Patient seen and examined at bedside. He has less abdominal pain but still has some back pain. He is still not feeling very hungry. He states that he had a popsicle yesterday he felt some gas in his stomach area and heartburn. No other complaints currently. Vital signs reviewed General: Ill appearing, no distress, appears at stated age Cardiovascular: S1S2 reg, no murmur Lungs: CTA bilateral, no rhonchi, no rales, no accessory muscle use Abdominal: Soft, + tender to palpation epigastric, no guarding Ext: No gross muscle atrophy, no edema b/l lower extremities, no contractures Neuro: CN II-XI grossly intact, no focal neuro deficits Psych: Alert, oriented, appropriate affect Assessment/Plan: Acute pancreatitis -Lactated Ringer's at 130 cc/h -Pain control with Toradol 15 mg IV every 6 hours for moderate pain and Dilaudid 0.5 to 1 mg as needed for more severe pain. -Continue Zofran 4 mg IV every 6 hours as needed for nausea and vomiting -Clear liquid diet -Add Protonix 40 mg IV push twice daily. -GI note reviewed: Increase to clear liquid diet. Await IgG. Leukocytosis, suspect reactive -Suspect reactive to pancreatitis. Repeat CBC in a.m. ADHD -Ritalin on hold while he is in the hospital. Imaging: Liver ultrasound: Fatty infiltration of the liver Data Review: Labs Reviewed from today include lipase which is 203 DVT prophylaxis: Lovenox Anticipated discharge date: Pending clinical course Anticipated discharge place: Pending clinical course This dictation was prepared using [employer] voice recognition software. Though every attempt is made to correct errors during dictation some may still exist. Objective - Vital Signs Vital signs: Vital Signs Temp 98.3 F 05/05/23 13:53 Pulse 94 05/05/23 13:53 Resp 16 05/05/23 13:53 BP 120/78 05/05/23 13:53 Pulse Ox 95 05/05/23 13:53 FiO2 Intake & Output 05/04/23 05/05/23 05/05/23 18:59 06:59 18:59 Other: # Voids 1 3 - Labs CBC & Chem 7: 05/04/23 05:33 05/04/23 05:33 Labs: Abnormal Lab Results - Last 24 Hours (Table) 05/05/23 Range/Units 05:38 Lipase 203 H (14-60) U/L
[2023-05-05 14:31] LABS: IgG Subclass 1 433.2 mg/dL (382.40-928.60); IgG Subclass 2 326.3 mg/dL (241.80-700.30); IgG Subclass 3 93.1 mg/dL (21.82-176.00); IgG Subclass 4 14.5 mg/dL (3.92-86.40)
[2023-05-06] MEDS: HYDROmorphone 0.5 MG/0.5 ML SYRINGE IVP PRN (02:39)
[2023-05-06] MEDS: LACTATED RINGERS 1,000 ML IV SCH ×2 (04:07→11:35)
[2023-05-06] MEDS: KETOROLAC 15 MG/ML 1 ML VIAL IVP PRN (06:47)
[2023-05-06 06:49] LABS: Basophils % (A) 0 %; Eosinophils # (A) 0.4 k/uL (0-0.7); Eosinophils % (A) 2 %; HCT 35.9 % (39.0-53.0); HGB 12.6 gm/dL (13.0-17.5); Lymphocytes # (A) 1.1 k/uL (1.0-4.8); Lymphocytes % (A) 7 %; MCH 31.6 pg (25.0-35.0); MCHC 35.1 g/dL (31.0-37.0); Mean Platelet Volume 9.7; Monocytes # (A) 0.8 k/uL (0-1.0); Monocytes % (A) 6 %; Neutrophils # (A) 12.1 k/uL (1.3-7.7); Neutrophils % (A) 83 %; Platelet Count 146 k/uL (150-450); RBC 3.99 m/uL (4.30-5.90); RDW 13.3 % (11.5-15.5); WBC 14.6 k/uL (3.8-10.6)
[2023-05-06 07:01] LABS: ALT 26 U/L (4-49); AST 21 U/L (17-59); African American GFR (CKD) >90 (>60 ml/min/1.73 sqM); Albumin 2.7 g/dL (3.5-5.0); Alkaline Phosphatase 98 U/L (38-126); Anion Gap 7 mmol/L; Blood Urea Nitrogen 9 mg/dL (9-20); Calcium 7.9 mg/dL (8.4-10.2); Carbon Dioxide 24 mmol/L (22-30); Chloride 104 mmol/L (98-107); Globulin 2.6 g/dL; Glucose 90 mg/dL (74-99); Non-African American GFR(CKD) >90 (>60 ml/min/1.73 sqM); Potassium 3.6 mmol/L (3.5-5.1); Sodium 135 mmol/L (137-145); Total Bilirubin 1.2 mg/dL (0.2-1.3); Total Protein 5.3 g/dL (6.3-8.2)
[2023-05-06] MEDS: ENOXAPARIN 40 MG/0.4 ML SYRINGE SQ SCH (09:23)
[2023-05-06] MEDS: PANTOPRAZOLE 40 MG/10 ML VIAL IVP SCH (09:23)
[2023-05-06] MEDS: HYDROcodone/APAP 5-325MG 1 EACH TAB PO PRN ×2 (09:28→15:30)
--- NOTE | 2023-05-06 12:03 | P.PN ---
Subjective Progress Note Date: 05/06/23 Principal diagnosis: Acute pancreatitis This is a pleasant 37-year-old white male who came to the emergency department for abdominal pain, nausea and vomiting. Patient states Thursday morning he was in [place] visiting his dad when he started having gas-like pain. The pain prog ressed and he started having nausea and vomiting for about 20 hours. He went to the hospital over in [place] where they gave him some IV fluids and antiemetics. He was then discharged and told to follow-up over here in [facility]. He was noted to have significantly elevated amylase and lipase without any evidence of transaminitis. He denies any history of previous pancreatitis, no family histor y of pancreatitis, denies any regular alcohol use, and no new medications. States he had some chills but no fever. No diarrhea associated with the nausea and vomiting. He had a CT of the abdomen and pelvis with IV contrast with findings of fluid within the right paracolic gutter and within the pelvis. Free fluid within the abdomen is abnormal in a male. Moderate fatty infiltration of liver. Cystlike area within the left hemipelvis make it to. Differential could include urinary bladder diverticulum and mesenteric cyst. Admitting labs WBC 18.9 hemoglobin 15 hematocrit 44 platelet count 179,000 INR 1.0 sodium 139 potassium 4.1 BUN 13 creatinine 0.8 total bilirubin 0.7 AST 24 ALT 47 alkaline phosphatase 93 amylase 1386 lipase 6435. Today's repeat of lipase 2992, total bilirubin 0.8 AST 22 ALT 40 alkaline phosphatase 96. He states abdominal pain is slightly better nausea and vomiting has subsided. He has not had a bowel movement in several days. Denies any fevers or chills right now. 05/05/2023 Patient seen and examined today as a follow-up. He is sitting up in bed eating a popsicle. Patient looks much better. States his pain is significantly improved and now just radiating in his back. No nausea or vomiting. He is afebrile. Repeat lipase today 203 down from 2992. Triglycerides are 54.80 05/06/2023 Patient seen and examined today as a follow-up. States abdominal pain continues to improve. He had toast for breakfast this morning with no nausea or vomiting. He is up and ambulating in the room. He is afebrile. Objective - Vital Signs Vital signs: Vital Signs Temp 98.1 F 05/06/23 07:00 Pulse 80 05/06/23 07:00 Resp 15 05/06/23 07:00 BP 135/84 05/06/23 07:00 Pulse Ox 97 05/06/23 07:00 FiO2 Intake & Output 05/05/23 05/06/23 05/06/23 18:59 06:59 18:59 Other: # Voids 3 2 # Bowel Movements 1 - Exam General appearance: The patient is alert, oriented, appears in no acute distress. HET: Head is normocephalic and atraumatic. Conjunctiva pink. Sclera anicteric. Neck: Supple without lymphadenopathy. Abdomen: Soft, mild epigastric tenderness, nondistended. No guarding or rigidity. Extremities: Normal skin color and turgor. No pedal edema Skin: No rashes, no jaundice Neurological: No focal deficits. Alert and oriented. - Labs CBC & Chem 7: 05/06/23 06:37 05/06/23 06:37 Labs: Abnormal Lab Results - Last 24 Hours (Table) 05/05/23 05/06/23 05/06/23 Range/Units 05:38 06:37 06:37 WBC 14.6 H (3.8-10.6) k/uL RBC 3.99 L (4.30-5.90) m/uL Hgb 12.6 L (13.0-17.5) gm/dL Hct 35.9 L (39.0-53.0) % Plt Count 146 L (150-450) k/uL Neutrophils # 12.1 H (1.3-7.7) k/uL Sodium 135 L (137-145) mmol/L Creatinine 0.64 L (0.66-1.25) mg/dL Calcium 7.9 L (8.4-10.2) mg/dL Total Protein 5.3 L (6.3-8.2) g/dL Albumin 2.7 L (3.5-5.0) g/dL Lipase 203 H (14-60) U/L Assessment and Plan (1) Acute pancreatitis Narrative/Plan: 37-year-old male presenting to the hospital with abdominal pain nausea and vom iting with acute pancreatitis. Unclear etiology at this time. He denies any alcohol use, no new medications, no concerns with gallbladder and LFTs are all normal. Denies any previous history of known fatty liver disease. Will order triglycerides, JOSUE and IgG4. Continue with aggressive IV hydration, pain medication like chips and popsicles. 05/05/2023 gallbladder ultrasound obtained no significant findings other than hepatic steatosis. CBD not dilated, pancreas tail is obscured by overlying bowel gas. Again unclear etiology of acute pancreatitis however patient's symptoms are improving. Recommendation is outpatient follow-up with gastroenterology in [place] where patient resides. No further workup indicated at this time. Current Visit: Yes Status: Acute Code(s): K85.90 - ACUTE PANCREATITIS WITHOUT NECROSIS OR INFECTION, UNSP SNOMED Code(s): 066782164 Plan: 1. Continue symptomatic and supportive care 2. Advance to low fiber low-fat diet 3. Pain medication and antiemetics as needed 4. Triglycerides, IgG and JOSUE ordered, reviewed and IgG a and JOSUE negative. 5. Gallbladder ultrasound ordered and reviewed 6. No further workup indicated at this time 7. Discussed with patient importance of following up with director [facility] as an outpatient in [place] where he resides Thank you for this consultation, patient is cleared for discharge from gastroenterology. Dr. Mitesh Doty I agree with the dictator's note, documented as a scribe by Clair Person.
--- NOTE | 2023-05-06 13:54 | P.DS ---
Providers Date of admission: 05/03/23 23:37 Expected date of discharge: 05/06/23 Attending physician: Geovanna Zamora MD Consults: 05/04/23 04:27 Consult Physician Urgent Consulting Provider: Judy Doty Consult Reason/Comments: pancreatitis Do you want consulting provider notified?: Yes Primary care physician: Physician Nonstaff Hospital Course: Discharge Diagnosis: Acute pancreatitis Fatty infiltration of the liver Reactive leukocytosis ADHD Hospital Course: Patient is a 37-year-old male with ADD who presented to the emergency department with complaints of abdominal pain and nausea. In the ER he underwent extensive evaluation. On arrival he was tachycardic with a pulse of 110. Laboratory analysis was remarkable for white blood cell count of 18.9, glucose 118, calcium 8.2, amylase 1386, and lipase of 6435. CT abdomen and pelvis showed moderate fatty infiltration of the liver, mild fluid within the right pericolic gutter and a cystlike area in the left hemipelvis. Patient was diagnosed with pancreatitis and was started on IV fluids, antiemetics, and pain control. Arrangements were made for admission. He was seen by GI an had liver US completed which showed fatty liver. He continued to improve. His diet was advanced and his pain was tolerated on oral medications. He was determined stable for discharge home. His IgG 4 level came back normal. Follow-up: Patient will follow-up with her primary care provider and greenhouse florist near where he resides in [place]. He was given his 4-day supply of [place] 7.5/325 to use every 6 hours as needed for pain. He will continue on a low-fat diet. Patient seen and examined at bedside. Doing better no more abdominal pain. Tolerated clear liquid diet well. Still having some back pain. Vital signs reviewed and stable. General: Nontoxic, no distress, appears at stated age Cardiovascular: S1S2 reg, no murmur, positive posterior tibial pulse bilateral, Lungs: CTA bilateral, no rhonchi, no rales, no accessory muscle use Abdominal: Soft, nontender to palpation, no guarding, no appreciable organomegaly Ext: No gross muscle atrophy, no edema b/l lower extremities, no contractures Neuro: CN II-XI grossly intact, no focal neuro deficits Psych: Alert, oriented, appropriate affect A total of 35 minutes of time were spent preparing this complex discharge summary. Patient was discharged on 05/06/2023. This dictation was prepared using [employer] voice recognition software. Though every attempt is made to correct errors during dictation some may still exist. Patient Condition at Discharge: Stable Plan - Discharge Summary Discharge Rx Participant: No New Discharge Prescriptions: New HYDROcodone/APAP 7.5-325MG [[place] 7.5-325] 1 tab PO Q6HR PRN 4 Days #16 tab PRN Reason: Pain Continue Naproxen Sodium [Aleve] 220 mg PO BID PRN PRN Reason: Pain Methylphenidate HCl [Ritalin] 10 mg PO DAILY PRN PRN Reason: adhd Simethicone [Gas-X] 125 mg PO DAILY PRN PRN Reason: Indigestion Famotidine [Pepcid] 20 mg PO DAILY PRN PRN Reason: Heartburn Discontinued Ibuprofen [Motrin Ib] 400 - 600 mg PO Q8H PRN PRN Reason: Pain Discharge Medication List Famotidine [Pepcid] 20 mg PO DAILY PRN 05/03/23 [History] Methylphenidate HCl [Ritalin] 10 mg PO DAILY PRN 05/03/23 [History] Naproxen Sodium [Aleve] 220 mg PO BID PRN 05/03/23 [History] Simethicone [Gas-X] 125 mg PO DAILY PRN 05/03/23 [History] HYDROcodone/APAP 7.5-325MG [[place] 7.5-325] 1 tab PO Q6HR PRN 4 Days #16 tab 05/06/23 [Rx] Follow up Appointment(s)/Referral(s): Nonstaff,Physician [Primary Care Provider] - 1-2 days Patient Instructions/Handouts: Pancreatitis (DC), Non-Alcoholic Fatty Liver Disease (DC) Activity/Diet/Wound Care/Special Instructions: Activity: as tolerated Diet: low fat Special Instructions: Please follow-up with a greenhouse florist near your home Discharge Disposition: HOME SELF-CARE
[2023-05-06 14:21] VITALS: BP 133/86; PULSE 83; RESP 16; TEMP 97.8
== END 2023-05-06 15:29 | disposition home or self-care (01) ==
LOC: EC 17:47 → 6NMEDSUR 23:37
PROVIDERS: ADMIT Internal Medicine; ATTEND Internal Medicine
DX: K85.90 Acute pancreatitis without necrosis or infection, unspecified (principal); K76.0 Fatty (change of) liver, not elsewhere classified; D72.829 Elevated white blood cell count, unspecified; R12 Heartburn; F90.9 Attention-deficit hyperactivity disorder, unspecified type; Z88.0 Allergy status to penicillin
CPT/HCPCS: 96376 ×5; 96361 ×2; 96372 ×3; 96375 ×2; 96374; 99285; 36415; 80053 ×3; 82150; 83605; 83690 ×3; 84478; 85025 ×2; 85027; 85610; 85730; 81001; 82787; 86038; 76705; 74177; G0378 ×3; J2765; J1650 ×3; J1885 ×3; C9113 ×2; J1170 ×4; Q9967